=== PATIENT | female | born 1950 | race African-American/Black ===

== ENCOUNTER 2017-07-28 17:33 | Emergency (ER) | payer MEDICARE, BC ==
[2017-07-28] MEDS ORDERED: Promethazine HCl 25 MG/ML VIAL ONE (18:51)
[2017-07-28 20:12] LABS: #Basophils 0.1 thou/uL (0.0-0.2); #Eosinphils 0.2 thou/uL (0.0-0.7); #Lymphocytes 1.9 thou/uL (1.20-3.40); #Monocytes 0.7 thou/uL (0.11-0.59); #Neutrophils 4.3 thou/uL (1.40-6.50); %Basophils 1.1 % (0.0-1.0); %Eosinophils 2.7 % (0.0-10.0); %Lymphocytes 26.8 % (21.0-51.0); %Monocytes 9.9 % (0.0-10.0); Hematocrit 41.2 % (36.0-47.0); Mean Platelet Volume 7.8 fL (7.4-10.4); Red Blood Cell (RBC) Count 4.72 mill/uL (4.20-5.40); White Blood Cell (WBC) Count 7.2 thou/uL (4.8-10.8)
[2017-07-28 20:17] LABS: PTT 33.5 SEC (22.9-36.1); Prothrombin Time 13.7 SEC (12.0-14.7)
--- NOTE | 2017-07-28 20:20 | RAD ---
PORTABLE AP CHEST RADIOGRAPH: Date: 07-28-17 History: Dyspnea. Comparison: 10-30-11 FINDINGS: Cardiac silhouette is magnified by projection. Pulmonary vasculature is within normal limits. Lungs are clear. Vascular calcifications are seen in the thoracic aorta. There has been no significant int erval change when compared to the prior exam. IMPRESSION: No acute cardiopulmonary process. POS: [facility]
[2017-07-28 20:23] LABS: ALT (SGPT) 10 U/L (8-55); AST (SGOT) 16 U/L (5-34); Alkaline Phosphatase 112 U/L (40-150); Anion Gap 16 mmol/L (10-20); BUN (Urea Nitrogen) 24 mg/dL (9.8-20.1); Bilirubin, Total 0.5 mg/dL (0.2-1.2); Calc. Creatinine Clearance 0 mL/min (70-130); Calcium 9.9 mg/dL (7.8-10.44); Carbon Dioxide 25 mmol/L (23-31); Chloride 104 mmol/L (98-107); Estimated GFR-MDRD 63; Globulin 4.1 g/dL (2.4-3.5); Protein, Total 7.9 g/dL (6.0-8.3)
[2017-07-28 20:28] LABS: Troponin I Less than 0.010 ng/mL (< 0.028)
--- NOTE | 2017-08-01 14:57 | EKG ---
Test Reason : Blood Pressure : / mmHG Vent. Rate : 059 BPM Atrial Rate : 059 BPM P-R Int : 168 ms QRS Dur : 136 ms QT Int : 438 ms P-R-T Axes : 039 -08 -03 degrees QTc Int : 433 ms Sinus bradycardia Right bundle branch block Abnormal ECG Confirmed by IGOR DORADO D.O. ([id number]), features editor RIA JOYCE ([id number]) on 08/01/2017 2:57:14 PM Referred By: Confirmed By:IGOR DORADO D.O.
== END 2017-07-28 21:30 | disposition home or self-care (01) ==
LOC: ERS 17:33
DX: R06.02 Shortness of breath (principal); R10.9 Unspecified abdominal pain; E78.5 Hyperlipidemia, unspecified; I10 Essential (primary) hypertension; F41.9 Anxiety disorder, unspecified; Z86.73 Personal history of transient ischemic attack (TIA), and cerebral infarction without residual deficits
CPT/HCPCS: 71010; 80053; 82553; 83880; 84484; 85025; 85610; 85730; 93005; J2550